=== PATIENT | male | born 1980 | race Caucasian/White ===

== ENCOUNTER 2018-03-30 05:50 | Day surgery (SDC) | payer BC ==
[~2018-03-30] VITALS: Ht 170.2 cm; Wt 94.3 kg
[~2018-03-30 05:50] MED LIST: LIPITOR10 MG PO; LISINOPRIL20 MG PO
--- NOTE | 2018-03-30 09:04 | NUR ---
03/30/18 0904 Cherrie Faustin PATIENT'S OXYGEN SATURATION REMAINS 100% ON 6L VIA MASK. OXYGEN IS DISCONTINUED AT THIS TIME.
--- NOTE | 2018-03-30 10:25 | NUR ---
YUSRA 0985 PT ARRIVED TO ROOM 4 FROM PACU. PT TALKING WITH STAFF. PT UNABLE TO RATE PAIN. DENIES NAUSEA. PT STATES "I DON'T LIKE THE WAY I FEEL." "I FEEL LIKE I AM OUT OF MY BODY." DISCUSSED THAT MEDICATIONS WILL BEGIN TO SUBSIDE AND ENCOURAGED PT TO REST. PT AGREES. VITALS STABLE. CALL LIGHT IN PLACE. AT BEDSIDE. NO FURTHER NEEDS AT THIS TIME.
--- NOTE | 2018-03-30 10:28 | NUR ---
IN TO CHECK ON PT, PT AWAKE TALKING WITH . PT C/O PAIN IN RIGHT SIDE. RATES IT A 5/10. DISCUSSED PAIN MEDICATION. PT WOULD LIKE TO HOLD OFF ON FURTHER IV MEDICATION AT THIS TIME. SANAM AND EVELYNE GIVEN. WILL CHECK ON PT.
--- NOTE | 2018-03-30 11:04 | NUR ---
PT CALLED, IN TO ROOM. PT ASSISTED UP TO RESTROOM WITH STANDBY ASSIST. PT TOLERATED WELL. SLIGHT DIZZINESS, SYMPTOMS PASSES QUICKLY. PT ABLE TO VOID, ASSISTED BACK TO BED. PO PAIN MEDICATION GIVEN. PT STATES "HOW LONG DOES IT TAKE FOR THIS STUFF TO CLEAR YOUR HEAD?" PT ADVISED THAT HE MAY FEEL LIGHT HEADED OR DIZZY FROM THE MEDICATIONS FOR 24 HRS. PT RESTING IN BED, CALL LIGHT IN REACH. AT BEDSIDE.
--- NOTE | 2018-03-30 12:44 | NUR ---
PT USES CALL LIGHT. RN IN RM. PT STATES HE "IS READY TO DC." UPON ASSESSMENT PT STATES HE IS NAUSEAS AND WANTS TO GO HOME SO HE CAN TAKE TAKE MEDICATION FOR IT. PT HAS IV ZOFRAN AVAILABLE TO HIM, WHICH IS OFFERED. PT ACCEPTS ZOFRAN MEDICATION. PT ENCOURAGED TO STAY FOR AT LEAST 20 MINUTES TO SEE IF MEDICATION ALEVIATES NAUSEA. PT AGREEABLE. CALL LIGHT TO LEFT OF PT.
--- NOTE | 2018-03-30 14:09 | NUR ---
LE 1340 RECV'D REPORT FROM PRASANNA. WILL RN WAS AT LUNCH PT EXPRESSED THAT HE WAS IN PAIN AND NAUSEATED. PT APPEARED TO RN PRASANNA TO BE UPSET AND WISHED TO GO HOME. IN TO SEE PT. WHEN ENTERING THE ROOM THE PT LYING IN BED CRYING WITH AT BEDSIDE. I EXPRESSED TO THE PT THAT IT WAS FELT THAT THERE WAS A MISS COMMUNICATION ON THE RN'S BEHALF. PT AND STATES THAT THEY HAVE RECENTLY HAD THE OF A CLOSE FRIEND AND THE PT'S HAS BEEN "STUFFING MY EMOTIONS DOWN UNTIL NOW." PT STATES "I FEEL STRANGE AND OUT OF IT WITH THESE MEDICATIONS." PT COUNSELED THAT ANESTHESIA CAN MAKE PT'S EMOTIONAL AT TIMES. PT STATES HE IS FEELING BETTER. PT ASSISTED UP TO BEDSIDE AND TO BATHROOM. TOLERATED WELL. PT STATES "MY PAIN IS TOLERABLE NOW." AFTER DISCUSSING CURRENT PAIN AND D/C CRITERIA, PT STATE HE WOULD BE MORE COMFORTABLE AT HOME. IV DC'D AND INSTRUCTIONS GIVEN. PT WHEELED OUT TO WAITING IN CAR. PT TOLERATED WELL.
--- NOTE | 2018-03-31 08:58 | OR ---
[facility] [address] [place], [place] [address] Signed DATE OF OPERATION: 03/30/2018 SURGEON: Aidan Willard MD PREOPERATIVE DIAGNOSES: 1. Chronic cholecystitis. 2. Biliary dyskinesia. POSTOPERATIVE DIAGNOSIS: Chronic cholecystitis with cholelithiasis (1-2 mm). PROCEDURE: Laparoscopic cholecystectomy with intraoperative cholangiogram. ESTIMATED BLOOD LOSS: None. FINDINGS: Norberto had multiple small 1-2 mm yellow cholesterol stones inside his gallbladder. The intraoperative cholangiogram was unremarkable. He has also had a previous right lower quadrant McBurney's incision for an appendectomy. The inside layer of muscle is open and there is some fat filling that defect. 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 Back in 2010, I had seen him for gallbladder issues. The ultrasound showed what was probably a little polypoid lesion. After today's surgery, we realized that is an adherent yellow cholesterol stones, that stone itself is probably 3 or 4 mm in diameter. He also had other small stones today as well. He ended up being seen by a physician in [place] and then another physician over at [facility]. He had been on a proton-pump inhibitor. He thought maybe that helped for a little while. He said the gallbladder symptoms seemed to come and go, but now they have become more frequent and more severe in the pain level. He said the last few months have been absolutely horrible. He has had the right upper quadrant abdominal pain worse after meals with significant nausea and sometimes vomiting. He has made himself very knowledgeable with respect to the gallbladder over the last few years. He said he finally could not take the pain any more, so he had been to his primary care provider. A HIDA scan was ordered. The ejection fraction for his gallbladder is actually zero and with injection of the CCK, it reproduced his symptoms and he said that was a terrible two days. As a result, he was asked to see me as a general surgeon. I had met with Norberto in the Electronically Signed By: AIDAN WILLARD MD 03/31/18 0858 PATIENT NAME: NORBERTO ROMERO OPERATIVE REPORT DATE OF : 82 REPORT #: [id number] PHYSICIAN: AIDAN WILLARD MD PCP: NAIDA HUERTA PA-C REPORT IS CONFIDENTIAL AND NOT TO BE RELEASED WITHOUT AUTHORIZATION [facility] [address] [place], [place] [address] Signed office and we went back over all his records and x-rays and laboratory work. I gave him a [employer] brochure on the gallbladder and we looked at that together. He understands the location of function of the gallbladder. He understands laparoscopic versus open cholecystectomy. He understands expected intraop and postop course. There is risk of surgery including, but not limited to bleeding, infection, scarring, change in contour of the skin, damage to bowel, damage to the main bile duct, incisional hernias and other unforeseen comorbidities. He had expressed understanding and wished to proceed. PROCEDURE NOTE: Norberto was taken into our operating room and placed in the supine position under general endotracheal tube anesthesia. He was given preoperative antibiotics along with subcutaneous heparin. SCDs were utilized. He was then prepped and draped in the usual sterile fashion. All trocars were placed in usual positions under direct visualization of camera without difficulty. The gallbladder was grasped and elevated in the right upper quadrant. Pictures were taken throughout for photodocumentation. The triangle of Calot was dissected free and a clip was placed on the cystic artery and it was divided. This cholangiocatheter was inserted into the cystic duct. The intraoperative cholangiogram was performed. The cystic duct stump was then secured with a PDS Endoloop along with 2 clips to shweta its location. The gallbladder was then carefully and slowly removed from the gallbladder with the help of the cautery and placed into an EndoCatch bag. The right upper quadrant was then irrigated and suctioned out until clear. After this, we used our laparoscopic suturing device to pass 0 Vicryl suture on either side of the fascia of the subxiphoid trocar site. This was tied down to close this fascia primarily. After this, the gallbladder was removed and opened on the back table by our circulating nurse. Again, he had the adherent 3-4 mm stone with multiple small 1-2 mm stones in the gallbladder. He also had a very small cystic duct. We also noticed one tiny stone just distally inserted our cholangiocatheter. After this, the fascia of the supraumbilical trocar site was closed with interrupted simple and [id number] 0 Vicryl sutures. Local anesthetic was injected in all trocar sites. Each trocar site was irrigated and suctioned out until clear. The skin and dermis of each trocar site were closed with interrupted 3-0 subcuticular Monocryl sutures. Dry gauze and tape were then applied to all incisions. Norberto was awakened from his anesthesia, extubated in the OR, and taken to recovery room in stable condition. Aidan Willard MD ALB/MODL /[id number] Electronically Signed By: AIDAN WILLARD MD 03/31/18 0858 PATIENT NAME: NORBERTO ROMERO OPERATIVE REPORT DATE OF : 82 REPORT #: [id number] PHYSICIAN: AIDAN WILLARD MD PCP: NAIAD HUERTA PA-C REPORT IS CONFIDENTIAL AND NOT TO BE RELEASED WITHOUT AUTHORIZATION [facility] [address] [place], [place] [address], [place] [address] Signed cc: MD Naida Dumont PA-C Copies: RACHAEL LAYNE MD, CHLOE K PA-C ~ Electronically Signed By: AIDAN WILLARD MD 03/31/18 0858 PATIENT NAME: NORBERTO ROMERO OPERATIVE REPORT DATE OF : [birth year] REPORT #: [id number] PHYSICIAN: AIDAN WILLARD MD PCP: NAIDA HUERTA PA-C REPORT IS CONFIDENTIAL AND NOT TO BE RELEASED WITHOUT AUTHORIZATION
== END 2018-03-30 13:50 | disposition home or self-care (01) ==
LOC: DS 05:50
PROVIDERS: Colon & Rectal Surgery
PROC: BF13YZZ Fluoroscopy of Gallbladder and Bile Ducts using Other Contrast (ICD-10-PCS; 2018-03-30)
PROC: 0FT44ZZ Resection of Gallbladder, Percutaneous Endoscopic Approach (ICD-10-PCS; principal; 2018-03-30 06:45)
DX: K81.2 Acute cholecystitis with chronic cholecystitis (principal); K82.8 Other specified diseases of gallbladder; I10 Essential (primary) hypertension; K21.9 Gastro-esophageal reflux disease without esophagitis; E78.5 Hyperlipidemia, unspecified; E66.9 Obesity, unspecified; I49.9 Cardiac arrhythmia, unspecified; M25.511 Pain in right shoulder; Z79.899 Other long term (current) drug therapy; Z68.32 Body mass index [BMI] 32.0-32.9, adult
CPT/HCPCS: 00790; 74300; J0131; J0330; J0690; J0735; J1100; J1644; J1885; J2250; J2405; J2704; J3010; J3475; J7120; Q9967

== ENCOUNTER 2018-12-20 17:20 | Emergency (ER) | payer BC ==
[~2018-12-20] VITALS: Ht 170.2 cm; Wt 94.3 kg
--- OUTSIDE RECORDS SUMMARY | ~2018-12-20 | XMS | Clinical Summary ---
Demographics + + + | Address | [address] | | | [place] [address] | + + + | Home Phone | | + + + | Preferred Language | Unknown | + + + | Marital Status | | + + + | Latter Day Affiliation | Unknown | + + + | Race | Unknown | + + + | Ethnic Group | Unknown | + + + Author + + + | Author | [facility] | | | and [place] | + + + | Organization | [facility] | | | and [place] | + + + | Address | Unknown | + + + | Phone | Unavailable | + + + Support + + +---------+ + | Name | Relationship | Address | Phone | + + +---------+ + | Mila Burgess | ECON | Unknown | | + + +---------+ + Care Team Providers + +------+ + | Care Assistant Health Educator Name | Role | Phone | + +------+ + PP | Unavailable | + +------+ + Allergies Not on File Current Medications + + + +---------+------+------+-------+ | Prescription | Sig. | Disp. | Refills | Star | End | Statu | | | | | | t | Date | s | | | | | | Date | | | + + + +---------+------+------+-------+ | | Place 1 Film under | 21 Film | 0 | 02/1 | 02/2 | Expir | | buprenorphine-naloxo | the tongue 3 times | | | 01/26 | 10/28 | ed | | ne (SUBOXONE) 8-2 mg | daily for 7 days. | | | 19 | 19 | | | SL filmIndications: | | | | | | | | Opioid use | | | | | | | | disorder, severe, on | | | | | | | | maintenance therapy | | | | | | | | (HCC) | | | | | | | + + + +---------+------+------+-------+ Active Problems Not on file Social History + +-------+ +--------+------+ | Tobacco Use | Types | Packs/Day | Years | Date | | | | | Used | | + +-------+ +--------+------+ | Never Assessed | | | | | + +-------+ +--------+------+ + + + | Sex Assigned at | Date Recorded | | | | + + + | Not on file | | + + + Plan of Treatment + + + + + | Health Maintenance | Due Date | Last Done | Comments | + + + + + | Vaccine: | | | | | Dtap/Tdap/Td (1 - | 0 | | | | Tdap) | | | | + + + + + | Vaccine: Influenza | | | | | (#1) | 8 | | | + + + + + Results Not on filefrom Last 3 Months"
--- OUTSIDE RECORDS SUMMARY | ~2018-12-20 | XMS | Clinical Summary ---
Demographics + + + | Address | [address] | | | [place] [address] | + + + | Home Phone | | + + + | Preferred Language | Unknown | + + + | Marital Status | | + + + | Jewish Affiliation | Unknown | + + + | Race | Unknown | + + + | Ethnic Group | Unknown | + + + Author + + + | Author | [facility] | + + + | Organization | [facility] | + + + | Address | Unknown | + + + | Phone | Unavailable | + + + Support + + +---------+ + | Name | Relationship | Address | Phone | + + +---------+ + | Mila Romero | ECON | Unknown | | + + +---------+ + | Leonard Romero | ECON | Unknown | | + + +---------+ + | Detailed,Message | ECON | Unknown | | + + +---------+ + Care Team Providers + +------+ + | Care Blacking Machine Operator Name | Role | Phone | + +------+ + PP | Unavailable | + +------+ + Allergies No Known Allergies Current Medications + + +--------+---------+------+------+-------+ | Prescription | Sig. | Disp. | Refills | Star | End | Statu | | | | | | t | Date | s | | | | | | Date | | | + + +--------+---------+------+------+-------+ | omeprazole | Take 20 mg by mouth | | | | | Activ | | (PRILOSEC) 20 MG | every morning before | | | | | e | | capsule | breakfast. | | | | | | + + +--------+---------+------+------+-------+ | | Take 1 tablet by | | | | | Activ | | cetirizine-pseudoeph | mouth 2 (two) times | | | | | e | | edrine (ZYRTEC-D) | daily. | | | | | | | 5-120 MG per tablet | | | | | | | + + +--------+---------+------+------+-------+ | Vilazodone HCl 10 | Take 10 mg by mouth | 30 | 11 | 02/0 | | Activ | | MG TABSIndications: | daily. | tablet | | 4/20 | | e | | Depression | | | | 15 | | | + + +--------+---------+------+------+-------+ Active Problems + + + | Problem | Noted Date | + + + | Fatigue | 11/12/2014 | + + + | Hyperlipidemia, mixed | 11/12/2014 | + + + | IFG (impaired fasting glucose) | 11/12/2014 | + + + | Myalgia and myositis | 11/12/2014 | + + + | Snoring | 11/12/2014 | + + + | Depression | 11/12/2014 | + + + | Obesity (BMI 30-39.9) | 11/12/2014 | + + + Family History + + +------+ + | Medical History | Relation | Name | Comments | + + +------+ + | Diabetes type II | Father | | | + + +------+ + | High cholesterol | Father | | | + + +------+ + | Hypertension | Father | | | + + +------+ + | Cancer | Maternal | | melanoma | | | Aunt | | | + + +------+ + | Arthritis | Maternal | | | | | Grandfath | | | | | er | | | + + +------+ + | Heart disease | Maternal | | | | | Grandfath | | | | | er | | | + + +------+ + | High cholesterol | Maternal | | | | | Grandfath | | | | | er | | | + + +------+ + | Arthritis | Maternal | | | | | Grandmoth | | | | | er | | | + + +------+ + | Osteoporosis | Maternal | | | | | Grandmoth | | | | | er | | | + + +------+ + | Allergy (severe) | Mother | | | + + +------+ + | Arthritis | Mother | | | + + +------+ + | Mental illness | Mother | | anxiety and depression | + + +------+ + | Other (see comments) | Mother | | Pituitary Gland Tumor | + + +------+ + | Thyroid disease | Mother | | | + + +------+ + | Ulcerative colitis | Mother | | | + + +------+ + | Alcoholism | Paternal | | | | | Grandfath | | | | | er | | | + + +------+ + | Arthritis | Paternal | | | | | Grandfath | | | | | er | | | + + +------+ + | Diabetes type II | Paternal | | | | | Grandfath | | | | | er | | | + + +------+ + | High cholesterol | Paternal | | | | | Grandfath | | | | | er | | | + + +------+ + | Hypertension | Paternal | | | | | Grandfath | | | | | er | | | + + +------+ + | Kidney disease | Paternal | | | | | Grandfath | | | | | er | | | + + +------+ + | Liver disease | Paternal | | | | | Grandfath | | | | | er | | | + + +------+ + | Arthritis | Paternal | | | | | Grandmoth | | | | | er | | | + + +------+ + | Osteoporosis | Paternal | | | | | Grandmoth | | | | | er | | | + + +------+ + | Alcoholism | Paternal | | | | | Uncle | | | + + +------+ + + +------+--------+ + | Relation | Name | Status | Comments | + +------+--------+ + | Father | | | | + +------+--------+ + | Maternal Aunt | | | | + +------+--------+ + | Maternal Grandfather | | | | + +------+--------+ + | Maternal Grandmother | | | | + +------+--------+ + | Mother | | | | + +------+--------+ + | Paternal Grandfather | | | | + +------+--------+ + | Paternal Grandmother | | | | + +------+--------+ + | Paternal Uncle | | | | + +------+--------+ + Social History + +-------+ +--------+------+ | Tobacco Use | Types | Packs/Day | Years | Date | | | | | Used | | + +-------+ +--------+------+ | Never Smoker | | | | | + +-------+ +--------+------+ + +---+---+---+ | Smokeless Tobacco: | | | | | Never Used | | | | + +---+---+---+ + + +---------+ + | Alcohol Use | Drinks/We | oz/Week | Comments | | | ek | | | + + +---------+ + | Yes | | | maybe 3 times a year | + + +---------+ + + + + | Sex Assigned at | Date Recorded | | | | + + + | Not on file | | + + + Last Filed Vital Signs + + + + | Vital Sign | Reading | Time Taken | + + + + | Blood Pressure | 132/86 | 12/15/2014 7:17 AM PDT | + + + + | Pulse | 107 | 12/15/2014 7:17 AM PDT | + + + + | Temperature | 36.7 C (98 F) | 12/12/2014 7:39 AM PST | + + + + | Respiratory Rate | 18 | 12/15/2014 7:17 AM PDT | + + + + | Oxygen Saturation | 98% | 12/15/2014 7:17 AM PDT | + + + + | Inhaled Oxygen | - | - | | Concentration | | | + + + + | Weight | 98.9 kg (218 lb) | 12/15/2014 7:17 AM PDT | + + + + | Height | 169.9 cm (5' 6.89") | 12/15/2014 7:17 AM PDT | + + + + | Body Mass Index | 34.26 | 12/15/2014 7:17 AM PDT | + + + + Plan of Treatment + [...] + Results Not on filefrom Last 3 Months Insurance + +--------+ +------+-------+ + | Payer | Benefi | Subscriber | Type | Phone | Address | | | t Plan | ID | | | | | | / | | | | | | | Group | | | | | + +--------+ +------+-------+ + | L&I - ELISSA | L&I - | [id number] | | | | | | SEDGWI | | | | | | | CK | | | | | | | CLAIMS | | | | | | | MNG | | | | | | | SER | | | | | + +--------+ +------+-------+ + | PREMERA | PREMER | [id number] | | | [address] [address] | | | A | [address] | | | [place] | | | [place] | | | | [phone] | | | [place] | | | | | + +--------+ +------+-------+ + + +--------+ +--------+ + + | Guarantor Name | Accoun | Relation to | Date | Phone | Billing Address | | | t Type | Patient | of | | | | | | | | | | + +--------+ +--------+ + + | CHANDU ROMERO | Person | Self [birth year] | Home: | [address] | | | al/Fam | | 1980 | [phone] | [place], [place] | | | precious | | | [phone] | [phone] | + +--------+ +--------+ + + | [id number] | Worker | Self | [birth year] | Home: | [address] | | | s Comp | | 1979 | [phone] | [place], [place] | | | | | | [phone] | [phone] | + +--------+ +--------+ + +
--- OUTSIDE RECORDS SUMMARY | ~2018-12-20 | XMS | Clinical Summary ---
Demographics + + + | Address | [address] | | | [place] [address] | + + + | Home Phone | | + + + | Preferred Language | Unknown | + + + | Marital Status | Single | + + + | Roman Catholic Affiliation | Unknown | + + + | Race | Unknown | + + + | Ethnic Group | Other Race | + + + Author + + + | Author | [facility] | + + + | Organization | [facility] | + + + | Address | Unknown | + + + | Phone | Unavailable | + + + Care Team Providers + +------+ + | Care Production Boring Machine Operator Name | Role | Phone | + +------+ + PP | Unavailable | + +------+ + Source Comments BOOKER is fully live on both [facility] Ambulatory and [facility] InPatient.[facility] Allergies Not on File Current Medications Not on file Active Problems Not on file Social History [...] | + + + + + | Influenza (Flu) | | | | | vaccination (#1) | 8 | | | + + + + + Results Not on filefrom Last 3 Months Insurance + +--------+ +------+ + + | Payer | Benefi | Subscriber | Type | Phone | Address | | | t Plan | ID | | | | | | / | | | | | | | Group | | | | | + +--------+ +------+ + + | [employer] BLUE | REGENC | [phone] | PPO | +- | [address] [address] [place] | | SHIELD | E [employer] | [phone] | [phone] | [place], [place] | | | | | | | [phone] | + +--------+ +------+ + + + +--------+ +--------+ + + | Guarantor Name | Accoun | Relation to | Date | Phone | Billing Address | | | t Type | Patient | of | | | | | | | | | | + +--------+ +--------+ + + | NORBERTO ROMERO | Person | Self [birth year] | Home: | [address] | | | al/Manuel | | 1980 | [phone] | [place] [address] | | | precious | | | [phone] | | + +--------+ +--------+ + +"
[2018-12-20] MEDS ORDERED: ONCE DAILY1 EACH PO (17:39)
[2018-12-20] MEDS ORDERED: PRILOSEC OTC20 MG PO (17:44)
[2018-12-20] MEDS ORDERED: COREG3.125 MG PO (18:48)
[2018-12-20] MEDS ORDERED: XANAX0.5 MG PO (18:48)
--- NOTE | 2018-12-20 21:16 | EKG ---
[facility] [address] [facility] [place] [address] Signed Normal sinus rhythm Rightward axis T wave abnormality, consider inferior ischemia Abnormal ECG When compared with ECG of 27-MAR-2018 13:43, QRS axis shifted right Non-specific change in ST segment in Inferior leads T wave inversion now evident in Inferior leads QT has lengthened Confirmed by RAFA PINEDO MD ([id number]) on 12/20/2018 9:16:35 PM Electronically Signed By: RAFA PINEDO MD 12/20/18 2116 PATIENT NAME: NORBERTO ROMERO ALEK Electrocardiogram DATE OF : 82 PHYSICIAN: RAFA PINEDO MD REPORT #: [id number] REPORT IS CONFIDENTIAL AND NOT TO BE RELEASED WITHOUT AUTHORIZATION
== END 2018-12-20 19:20 | disposition home or self-care (01) ==
LOC: ED 17:20
DX: R00.0 Tachycardia, unspecified (principal); F41.9 Anxiety disorder, unspecified; I10 Essential (primary) hypertension; Z90.49 Acquired absence of other specified parts of digestive tract; Z79.899 Other long term (current) drug therapy
CPT/HCPCS: 71045; 80053; 84484; 85025; 93005; 93010; 99285-25